=== PATIENT | female | born 1990 | race African-American/Black ===

== ENCOUNTER 2017-07-16 00:07 | Emergency (ER) | payer OTHER ==
[~2017-07-16] VITALS: Ht 157.5 cm; Wt 115.2 kg
[~2017-07-16 00:07] MED LIST: ALBU0.099 PO
[2017-07-16 00:11] VITALS: BP 129/73
[2017-07-16] MEDS: ALBUTEROL SULFATE/IPRATROPIU 3 ML SOL IH ONE ×2 (00:51→01:23)
[2017-07-16] MEDS: predniSONE 20 MG TAB PO ONE (01:31)
[2017-07-16 01:47] VITALS: BP 120/75
== END 2017-07-16 01:47 | disposition home or self-care (01) ==
LOC: MED 00:07
DX: J45.909 Unspecified asthma, uncomplicated (principal); E11.9 Type 2 diabetes mellitus without complications; D64.9 Anemia, unspecified; Z88.1 Allergy status to other antibiotic agents; Z88.2 Allergy status to sulfonamides; Z88.8 Allergy status to other drugs, medicaments and biological substances
CPT/HCPCS: 71045; 94640; 99284; J7620; 99283; J7512

== ENCOUNTER 2021-12-30 03:20 | Emergency (ER) | payer MEDICAID, OTHER ==
[~2021-12-30] VITALS: Ht 157.5 cm; Wt 120.2 kg
[2021-12-30 04:11] VITALS: BP 128/65
--- NOTE | 2021-12-30 04:21 | NUR ---
PT TAKEN TO BED 9
[2021-12-30] MEDS ORDERED: IBUPROFEN 600 MG TAB PO ONE (04:50)
[2021-12-30] MEDS ORDERED: FLUCONAZOLE 100 MG TAB PO ONE (04:50)
[2021-12-30] MEDS ORDERED: ACETAMINOPHEN EXTRA STRENGTH 500 MG TAB PO ONE (04:50)
--- NOTE | 2021-12-30 05:08 | NUR ---
Dr. Stokes examining patient.
[2021-12-30 05:31] VITALS: BP 122/84
--- NOTE | 2021-12-30 05:33 | NUR ---
Patient discharged with v/s stable. Written and verbal after care instructions given and explained. Patient verbalized understanding. Ambulatory with steady gait. All questions addressed prior to discharge. Advised to follow up with PMD.
== END 2021-12-30 05:33 | disposition home or self-care (01) ==
LOC: MED 03:20
DX: J06.9 Acute upper respiratory infection, unspecified (principal); Z20.822 Contact with and (suspected) exposure to COVID-19; B37.31 Acute candidiasis of vulva and vagina; J45.909 Unspecified asthma, uncomplicated; Z88.1 Allergy status to other antibiotic agents; Z88.2 Allergy status to sulfonamides; Z88.8 Allergy status to other drugs, medicaments and biological substances
CPT/HCPCS: 99284

== ENCOUNTER 2022-04-11 19:18 | Emergency (ER) | payer BC, MEDICAID ==
[~2022-04-11] VITALS: Ht 157.5 cm; Wt 117.9 kg
[2022-04-11 19:53] VITALS: BP 108/64
[2022-04-11] MEDS ORDERED: ACETAMINOPHEN EXTRA STRENGTH 500 MG TAB PO STA (20:03)
[2022-04-11] MEDS ORDERED: ALBUTEROL SULFATE/IPRATROPIU 3 ML SOL IH ONE (20:25)
[2022-04-11] MEDS ORDERED: IBUPROFEN 600 MG TAB PO ONE (20:25)
[2022-04-11 20:29] LABS: APPEARANCE,URINE CLEAR (CLEAR); BILIRUBIN,URINE NEGATIVE (NEGATIVE); BLOOD, URINE TRACE-I (NEGATIVE); COLOR,URINE YELLOW (YELLOW); LEUKOCYTE ESTERASE ,URINE NEGATIVE (NEGATIVE); NITRITE, URINE NEGATIVE (NEGATIVE); UGLUCOSE NEGATIVE (NEGATIVE)
[2022-04-11 20:46] LABS: WBC,URINE 0-5 /HPF (0-5)
[2022-04-11 21:27] VITALS: BP 111/69
--- NOTE | 2022-04-11 21:29 | NUR ---
d/c with VSS. d/c education given. opportunity to ask questions given and answered. no rx given.
== END 2022-04-11 21:30 | disposition home or self-care (01) ==
LOC: MED 19:18
DX: M54.50 Low back pain, unspecified (principal); R06.02 Shortness of breath; Z88.1 Allergy status to other antibiotic agents; Z88.2 Allergy status to sulfonamides; Z88.8 Allergy status to other drugs, medicaments and biological substances
CPT/HCPCS: 81001; 81025; 94640; 99283